=== PATIENT | female | born 1940 | race Caucasian/White ===

== ENCOUNTER → 2017-01-05 | Outpatient (CLI) | payer MEDICARE ==
--- NOTE | 2017-01-05 14:04 | MM ---
Reason for exam: follow-up at short interval from prior study. Last mammogram was performed 6 months ago. History: Patient is postmenopausal. Family history of breast cancer in paternal aunt at age 50. Excisional biopsy of the left breast. Took estrogen for 8 years beginning at age 57. Took progesterone for 8 years beginning at age 57. MG 3D Diag Mammo W/Cad LT LM view(s) were taken of the left breast. Prior study comparison: July 05, 2016, bilateral MG 3d screening mammo w/cad. June 02, 2015, bilateral MG screening mammo w CAD. June 15, 2013, bilateral digital screening mammo w/CAD. The breast tissue is heterogeneously dense. This may lower the sensitivity of mammography. Finding: There are typically benign round, grouped calcifications in the left breast at chronic nodularity. There is no discrete abnormality. These results were verbally communicated with the patient and result sheet given to the patient on 01/05/17. ASSESSMENT: Benign, BI-RAD 2 RECOMMENDATION: Routine screening mammogram of both breasts in 6 months. Back on schedule.
== END | disposition home or self-care (01) ==
LOC: RADMAMWWP 12:46
PROVIDERS: ATTEND Internal Medicine Geriatric Medicine
DX: R92.8 Other abnormal and inconclusive findings on diagnostic imaging of breast (principal)
CPT/HCPCS: G0206; G0279

== ENCOUNTER → 2017-08-16 | Outpatient (CLI) | payer MEDICARE ==
--- NOTE | 2017-08-18 07:08 | MM ---
Reason for exam: screening (asymptomatic). Last mammogram was performed 7 months ago. History: Patient is postmenopausal. Family history of breast cancer in paternal aunt at age 50. Excisional biopsy of the left breast. Took estrogen for 8 years beginning at age 57. Took progesterone for 8 years beginning at age 57. Physical Findings: A clinical breast exam by your physician is recommended on an annual basis and results should be correlated with mammographic findings. MG 3D Screening Mammo W/Cad Bilateral CC and MLO view(s) were taken. Prior study comparison: January 05, 2017, left breast MG 3d diag mammo w/cad LT. July 05, 2016, bilateral MG 3d screening mammo w/cad. The breast tissue is extremely dense which could obscure a lesion on mammography. No significant changes when compared with prior studies. ASSESSMENT: Benign, BI-RAD 2 RECOMMENDATION: Routine screening mammogram of both breasts in 1 year.
== END | disposition home or self-care (01) ==
LOC: RADMAMWWP 11:35
PROVIDERS: ATTEND Internal Medicine Geriatric Medicine
DX: Z12.31 Encounter for screening mammogram for malignant neoplasm of breast (principal)
CPT/HCPCS: 77063; 77067

== ENCOUNTER → 2018-10-25 | Outpatient (CLI) | payer MEDICARE ==
--- NOTE | 2018-10-25 11:26 | USB ---
Reason for exam: additional evaluation requested from abnormal screening. History: Patient is postmenopausal. Family history of breast cancer in paternal aunt at age 50. Excisional biopsy of the left breast. Took estrogen for 8 years beginning at age 57. Took progesterone for 8 years beginning at age 57. Physical Findings: Nurse Summary: 3cm hard firm nodule 6 o'clock (nurse dw). US Breast Workup Limited RT Right limited breast ultrasound including focal area of concern, retroareolar and axilla demonstrates a 3.4 x 1.6 x 2.6cm irregular, hypoechoic, vascular lesion at 5 o'clock. These results were verbally communicated with the patient and result sheet given to the patient on 10/25/18. ASSESSMENT: Suspicious, BI-RAD 4 RECOMMENDATION: Ultrasound core biopsy of the right breast. Called Dr. Reich with mammographic findings and has scheduled an appointment for the patient for 11/16/18 at 11:[address] Francis. Biopsy scheduled for 11/08/18 at 1:00. PRELIMINARY REPORT CALLED AND FAXED TO DR. FRANCIS ON 10/25/18.
== END | disposition home or self-care (01) ==
LOC: RADUSWWP 09:17
PROVIDERS: ATTEND Internal Medicine Geriatric Medicine
DX: R92.8 Other abnormal and inconclusive findings on diagnostic imaging of breast (principal)

== ENCOUNTER → 2018-11-08 | Day surgery (SDC) | payer MEDICARE ==
[2018-11-08 12:27] VITALS: RESP 16; TEMP 99.4; BMI 31.4
[2018-11-08 14:16] VITALS: BP 129/74; PULSE 84
--- NOTE | 2018-11-08 15:56 | USB ---
EXAMINATION TYPE: US biopsy breast VAD RT DATE OF EXAM: 11/08/2018 CLINICAL HISTORY: R98.2 ABN VERONICA. TECHNIQUE: Ultrasound guided core biopsy of right breast. COMPARISON: NONE FINDINGS: The procedure of ultrasound guided core biopsy was explained to the patient. Benefits, alternatives, and risks were discussed. An informed consent was then obtained. A timeout was performed. The patient was placed in supine positioning for imaging and for the procedure. The overlying skin was prepped and draped in usual sterile fashion. Lidocaine buffered with bicarbonate was used as anesthetic into the skin and subcutaneous tissue up to area of concern in the right breast. A christina was made with surgical scalpel. Under ultrasound guidance, a 12-gauge vacuum assisted biopsy gun device was used to obtain 7 core samples. A lateral approach was utilized for inferior access to the lesion to void large vessels which were evident during the exam. Following this, a biopsy clip was left in lesion. The patient tolerated the procedure well without any immediate complication. The patient was kept in the radiology department for short stay after the procedure and then discharged home in stable condition. Postprocedure mammogram is obtained. Clip is within the area of increased density within the lower inner 5:00 middle aspect right breast. IMPRESSION: 1. Successful, uncomplicated ultrasound guided core biopsy of area of concern in the right breast, full pathology results to follow. Recommendations: 1. Recommendations are pending pathology results. Pathology Results: Malignant RIGHT BREAST, NEEDLE CORE BIOPSIES: Pleomorphic lobular carcinoma, grade 2. Appropriately controlled immunohistochemical studies for CAM 5.2 and E-Cadherin suport the diagnosis of pleomorphic lobular carcinoma: MUM1, CD45 and CD38 are negative for a lymphoplasmacytoid lesion. Recommendation Surgical consult of the right breast. JENNIFER
--- NOTE | 2018-11-08 15:57 | MM ---
EXAMINATION TYPE: US biopsy breast VAD RT DATE OF EXAM: 11/08/2018 CLINICAL HISTORY: R98.2 ABN VERONICA. TECHNIQUE: Ultrasound guided core biopsy of right breast. COMPARISON: NONE FINDINGS: The procedure of ultrasound guided core biopsy was explained to the patient. Benefits, alt ernatives, and risks were discussed. An informed consent was then obtained. A timeout was performed. The patient was placed in supine positioning for imaging and for the procedure. The overlying skin w as prepped and draped in usual sterile fashion. Lidocaine buffered with bicarbonate was used as anes thetic into the skin and subcutaneous tissue up to area of concern in the right breast. A christina was m jean-claude with surgical scalpel. Under ultrasound guidance, a 12-gauge vacuum assisted biopsy gun device was used to obtain 7 [address]es. A lateral approach was utilized for inferior access to the lesion to void large vessels which were evident during the exam. Following this, a biopsy clip was left in lesion. The patient tolerated the procedure well without any immediate complication. The patient was kept in the radiology department for short stay after the procedure and then discharged home in stable condi tion. Postprocedure mammogram is obtained. Clip is within the area of increased density within the lower in ner 5:00 middle aspect right breast. IMPRESSION: 1. Successful, uncomplicated ultrasound guided core biopsy of area of concern in the right breast, fu ll pathology results to follow.
== END ==
LOC: RADUSWWP 11:50
PROVIDERS: ATTEND Surgery
DX: C50.311 Malignant neoplasm of lower-inner quadrant of right female breast (principal)
CPT/HCPCS: 88305; 88342; 88341; 77065; 19083; A4648; J2001

== ENCOUNTER → 2019-05-07 | Outpatient (CLI) | payer MEDICARE ==
--- NOTE | 2019-05-07 10:04 | MM ---
Reason for exam: additional evaluation requested from prior study. Last mammogram was performed 6 months ago. History: Patient is postmenopausal and has history of breast cancer at age 78. Family history of breast cancer in paternal aunt at age 50. Malignant US biopsy breast VAD RT of the right breast, November 08, 2018. Excisional biopsy of the left breast. Took estrogen for 8 years beginning at age 57. Took progesterone for 8 years beginning at age 57. Physical Findings: Nurse did not find any significant physical abnormalities on exam. MG 3D Diag Mammo W/Cad RT CC and MLO view(s) were taken of the right breast. Prior study comparison: November 08, 2018, right breast MG diagnostic mammo RT wo CAD. October 12, 2018, bilateral MG 3d screening mammo w/cad. The breast tissue is extremely dense which could obscure a lesion on mammography. Smaller size of the right lower inner quadrant mass, biopsy proven breast cancer marked with a ribbon marker, now measuring 1.7cm from nipple. Benign appearing calcifications in the right breast. These results were verbally communicated with the patient and result sheet given to the patient on 05/07/19. ASSESSMENT: Known biopsy proven malignancy, BI-RAD 6 RECOMMENDATION: Localization and excision of the right breast.
--- NOTE | 2019-05-07 10:06 | USB ---
Reason for exam: additional evaluation requested from prior study. History: Patient is postmenopausal and has history of breast cancer at age 78. Family history of breast cancer in paternal aunt at age 50. Malignant US biopsy breast VAD RT of the right breast, November 08, 2018. Excisional biopsy of the left breast. Took estrogen for 8 years beginning at age 57. Took progesterone for 8 years beginning at age 57. US Breast RT Right complete breast ultrasound includes all four quadrants, the retroareolar region and axilla. Finding demonstrates a 2.6 x 2.6 x 1.3cm irregular, vascular lesion at 5 o'clock, prior 3.4 x 1.6 x 2.6cm. These results were verbally communicated with the patient and result sheet given to the patient on 05/07/19. ASSESSMENT: Known biopsy proven malignancy, BI-RAD 6 RECOMMENDATION: Localization and excision of the right breast.
== END | disposition home or self-care (01) ==
LOC: RADMAMWWP 08:05
PROVIDERS: ATTEND Internal Medicine Hematology & Oncology
DX: N63.10 Unspecified lump in the right breast, unspecified quadrant (principal); R92.8 Other abnormal and inconclusive findings on diagnostic imaging of breast; Z85.3 Personal history of malignant neoplasm of breast
CPT/HCPCS: 77065; 76641; G0279; 77061

== ENCOUNTER 2019-05-25 07:47 | Day surgery (SDC) | payer MEDICARE ==
[2019-05-24 08:25] VITALS: BMI 28.3
[~2019-05-25 07:47] MED LIST: HYDROmorphone 0.5 MG/0.5 ML SYRINGE IVP PRN; LACTATED RINGERS 1,000 ML IV SCH; MIDAZOLAM 2 MG/2 ML VIAL IV PRN; Pre Op ABX Message 1 EACH MISC MISCELLANE ONE
[2019-05-25] MEDS ORDERED: ALPRAZolam 0.25 MG TAB PO ONE (08:14)
[2019-05-25] MEDS ORDERED: LIDOCAINE 1% 20 ML VIAL (10MG/ML) FOR IV START INTRADERMA ONE (08:29)
--- NOTE | 2019-05-25 08:52 | P.NAPBC ---
[facility] Queries - [facility] Was patient's case review presented at [facility] tumor board? If no, comment.: Yes Was patient's pathology reviewed at [facility]? If no, comment.: Yes Was breast conservation surgery offered? If no, comment.: Yes Was sentinel node biopsy offered? If no, comment.: Yes Was diagnosis confirmed by percutaneous core biopsy? If no, comment.: Yes Is patient mastectomy patient?: Yes Was a preop referral to reconstructive surgeon offered?: Yes [facility] Comments: 2a Clinical Stage: 2a
[2019-05-25] MEDS ORDERED: LIDOCAINE 1% INJ 10MG/ML (20 ML MDV) SQ ONE (08:56)
[2019-05-25] MEDS ORDERED: PROPOFOL 10 MG/ML 20 ML VIAL IV ONE (09:49)
[2019-05-25] MEDS ORDERED: LIDOCAINE 1% INJ 10MG/ML (20 ML MDV) ONE (09:49)
[2019-05-25] MEDS ORDERED: ePHEDrine SULFATE/0.9% NACL/PF 50 MG/5 ML SYRINGE IV ONE (09:49)
[2019-05-25] MEDS ORDERED: MIDAZOLAM 2 MG/2 ML VIAL ONE (09:49)
[2019-05-25] MEDS ORDERED: SUCCINYLCHOLINE CHLORIDE 100 MG/5 ML SYR IV ONE (09:49)
[2019-05-25] MEDS ORDERED: fentaNYL (PF) 50 MCG/ML 2 ML AMP ONE (09:49)
[2019-05-25] MEDS: ONDANSETRON 4 MG/2 ML VIAL IVP ONE ×2 (09:51→09:56)
[2019-05-25] MEDS: DEXAMETHASONE SOD PHOSPHATE 10 MG/ML 1 ML VIAL IV ONE ×2 (09:51→09:56)
[2019-05-25] MEDS ORDERED: SCOPOLAMINE 1.5MG/72HR PATCH TRANSDERM ONE ×2 (09:51→09:57)
[2019-05-25] MEDS: HEPARIN SODIUM,PORCINE 5,000 UNIT/ML 1 ML VIAL SQ ONE ×2 (09:51→09:56)
[2019-05-25] MEDS ORDERED: SODIUM CHLORIDE 0.9% 100 ML with ceFAZolin 2,000 MG IV ONE ×2 (10:06)
--- NOTE | 2019-05-25 10:13 | NM ---
EXAMINATION TYPE: NM sentinel node injection DATE OF EXAM: 05/25/2019 COMPARISON: Right breast biopsy dated 11/08/2018 HISTORY: Right breast cancer with request for sentinel node injection. TECHNIQUE AND FINDINGS: The procedure of sentinel lymph node injection was explained to the patient. The benefits, alternatives, and risks were discussed. An informed consent was then obtained. Overlying skin is cleaned with sterile alcohol. Following this, 549 uCi Tc99m Tilmanocept was inject ed in the upper outer aspect of the right nipple intradermally. The patient tolerated the procedure well without any immediate complication. The patient was kept in the radiology department for short stay after the procedure and then taken to surgery for surgical p rocedure what is presumed intraoperative gamma probe will be used for sentinel lymph node detection. IMPRESSION: Right breast radiotracer injection for sentinel node localization as above.
[2019-05-25] MEDS ORDERED: METHYLENE BLUE 50 MG/10 ML AMPUL MISCELLANE ONE (10:15)
[2019-05-25] MEDS ORDERED: METHYLENE BLUE 10 MG/ML (10 ML VIAL) MISCELLANE ONE (10:15)
[2019-05-25] MEDS ORDERED: BUPIVACAINE (PF) 0.25% 30 ML VIAL SQ ONE (10:27)
--- NOTE | 2019-05-25 11:09 | MM ---
EXAMINATION TYPE: MG pre op needle loc RT, MG surgical specimen RT DATE OF EXAM: 05/25/2019 COMPARISON: Right breast biopsy dated 11/08/2018 HISTORY: Right breast cancer with request for mammographic guided needle localization. TECHNIQUE: Needle localization with wire placement and surgical excision of area of concern in the right breast. FINDINGS: The procedure of needle localization with wire placement and than surgical excision was explained to the patient. Benefits, alternatives, and risks were discussed. An informed consent was then obtained. Preprocedural timeout was performed. The shortest pathway for procedure was chosen. Shortest pathway was CC from below approach. The overlying skin was prepped and draped in usual sterile fashion. Lidocaine buffered with bicarbonate was used as anesthetic into the skin and subcutaneous tissue up to the level of area of concern. A 5 cm needle was used. It was placed via a 5 approach under mammographic guidance. Subsequent 90 degrees mammogram show the needle to be in satisfactory position relative to the targeted area. At this point, wire was placed and the needle was withdrawn. The wire was fixed to patient's skin. Images were marked for surgeon. The patient tolerated the procedure well without any immediate complication. The patient was kept in the radiology department for short stay after the procedure and then taken to surgery for surgical excision. Targeted biopsy marker and wire are identified in specimen mammogram. The patient was kept in hospital for short stay after the procedure and then discharged home in stable condition. Findings communicated to the OR at 11:07 AM on 05/25/2019 by the installation technician. IMPRESSION: Successful, uncomplicated needle localization with wire placement and surgical excision of a targeted biopsy marker denoting the biopsy-proven breast cancer in the right breast, full pathology results to follow. Pathology Results: Malignant A. SENTINEL LYMPH NODE RIGHT BREAST, BIOPSY: Lymph node negative for metastasis. CK7 and NAOMY immunoperoxidase stains are confirmatory (controls appropriate). B. RIGHT BREAST, LUMPECTOMY: Residual invasive pleomorphic lobular carcinoma, margins negative for malignancy. See Surgical Pathology Cancer Case Summary. Recommendation Surgical consult of the right breast. JENNIFER
[2019-05-25 11:32] VITALS: TEMP 96.8
[2019-05-25] MEDS ORDERED: NALOXONE 0.4 MG/ML 1 ML VIAL IV PRN (11:44)
[2019-05-25] MEDS ORDERED: HYDROcodone/APAP 5-325MG 1 EACH TAB PO PRN (11:44)
--- NOTE | 2019-05-25 11:48 | P.OP ---
Date of Procedure: 05/25/19 Procedure(s) Performed: REOPERATIVE DIAGNOSIS: Right breast cancer POSTOPERATIVE DIAGNOSIS: Same PROCEDURE: Right Breast wire localization lumpectomy with sentinel lymph node biopsy SURGEON: Tito EBL: Minimal ANESTHESIA: General COMPLICATIONS: None OPERATIVE PROCEDURE: Patient was placed on the operating room table in the supine position. 2 mL of methylene blue was injected into the subareolar space. The breast was then massaged for 5 minutes. The breast was prepped and draped in usual sterile fashion. The right axilla was addressed at that time. The hot spot in the right axilla was identified. A small curvilinear incision was made using the scalpel. Dissection down through the subcutaneous tissues took place using electrocautery. Using the neoprobe I identified the sentinel lymph node. This was blue in color. This was slender and nonindurated but somewhat long. I suspect there may have been 2 lymph nodes here. No additional radioactivity was encountered in the axilla. No frozen section of the lymph node took place given the benign appearance and the fact that the initial pathology was lobular carcinoma. No bleeding was seen. The subcutaneous tissues were closed using 3- 0 Vicryl sutures. The skin was closed using 4-0 Monocryl sutures. The wire entrance site was then addressed. This was present at the 3:00 location. A curvilinear incision was made adjacent to the wire entrance site. I followed the wire down into the breast tissue. An adequate lumpectomy specimen then took place around the wire. Margins of 1.5-2 cm worth attempted to be achieved. The patient's breast tissue diffusely was somewhat dense. As I was closing the surgical site the specimen was sent to pathology prematurely. I had not painted the specimen at that time. When we tried to have the specimen brought back to the operative suite from x-ray we learned that it already been placed in formalin in the lab. The family was notified that the margins were not painted. Clips were used to identify the lumpectomy cavity. The clip was confirmed to be within the lumpectomy specimen by radiology. The subcutaneous tissues were closed using 3-0 Vicryl sutures. The skin was closed using a running 4-0 Monocryl stitch. Skin glue and sterile dressings were then applied. DISPOSITION: Stable to recovery room
[2019-05-25 13:41] VITALS: BP 144/80; PULSE 73; RESP 16
== END 2019-05-25 14:27 | disposition home or self-care (01) ==
LOC: OR 07:47
PROVIDERS: ATTEND Surgery
DX: C50.411 Malignant neoplasm of upper-outer quadrant of right female breast (principal); E78.5 Hyperlipidemia, unspecified; I10 Essential (primary) hypertension; E07.9 Disorder of thyroid, unspecified; M19.90 Unspecified osteoarthritis, unspecified site; H40.9 Unspecified glaucoma; Z98.49 Cataract extraction status, unspecified eye; Z84.89 Family history of other specified conditions; Z79.890 Hormone replacement therapy; Z79.899 Other long term (current) drug therapy; Z91.018 Allergy to other foods
CPT/HCPCS: 19301; 38525; 88342; 88307; 88341; 76098; 19281; 38792; A9520; J2250; J1644; J1100; J2405; J0690; J2001; J3010; J0330; J2704; Q9968

== ENCOUNTER → 2020-01-28 | Outpatient (CLI) | payer MEDICARE ==
--- NOTE | 2020-01-29 09:20 | MM ---
Reason for exam: additional evaluation requested from prior study. Last mammogram was performed 9 months ago. History: Patient is postmenopausal and has history of breast cancer at age 78. Family history of breast cancer in paternal aunt at age 50. Malignant MG pre op needle loc RT of the right breast, May 25, 2019. Lumpectomy of the right breast, May 25, 2019. Radiation therapy of the right breast, May 2019. Malignant US biopsy breast VAD RT of the right breast, November 08, 2018. Excisional biopsy of the left breast. Took estrogen for 8 years beginning at age 57. Took progesterone for 8 years beginning at age 57. Taking antineoplastic for 1 year. Physical Findings: Nurse did not find any significant physical abnormalities on exam. MG 3D Diag Mammo W/Cad LIBERTAD Bilateral CC and MLO view(s) were taken. Prior study comparison: May 07, 2019, right breast MG 3d diag mammo w/cad RT. November 08, 2018, right breast MG diagnostic mammo RT wo CAD. The breast tissue is heterogeneously dense. This may lower the sensitivity of mammography. Stable benign calcifications. There is no discrete abnormality. No significant new findings when compared with previous films. These results were verbally communicated with the patient and result sheet given to the patient on 01/28/20. ASSESSMENT: Benign, BI-RAD 2 RECOMMENDATION: Routine screening mammogram of both breasts in 1 year.
== END | disposition home or self-care (01) ==
LOC: RADMAMWWP 14:58
PROVIDERS: ATTEND Radiology Radiation Oncology
DX: C50.311 Malignant neoplasm of lower-inner quadrant of right female breast (principal); Z92.3 Personal history of irradiation; Z17.0 Estrogen receptor positive status [ER+]
CPT/HCPCS: 77066; G0279; 77062

== ENCOUNTER → 2021-02-11 | Outpatient (CLI) | payer MEDICARE ==
--- NOTE | 2021-02-11 10:45 | MM ---
Reason for exam: additional evaluation requested from prior study. Last mammogram was performed 1 year ago. History: Patient is postmenopausal and has history of breast cancer at age 78. Family history of breast cancer in paternal aunt at age 50. Malignant MG pre op needle loc RT of the right breast, May 25, 2019. Lumpectomy of the right breast, May 25, 2019. Radiation therapy of the right breast, May 2019. Malignant US biopsy breast VAD RT of the right breast, November 08, 2018. Excisional biopsy of the left breast. Took estrogen for 8 years beginning at age 57. Took progesterone for 8 years beginning at age 57. Taking antineoplastic beginning at age 78. Physical Findings: Nurse did not find any significant physical abnormalities on exam. MG 3D Diag Mammo W/Cad LIBERTAD Bilateral CC and MLO view(s) were taken. Prior study comparison: January 28, 2020, bilateral MG 3d diag mammo w/cad LIBERTAD. May 07, 2019, right breast MG 3d diag mammo w/cad RT. The breast tissue is heterogeneously dense. This may lower the sensitivity of mammography. Right post operative changes. These results were verbally communicated with the patient and result sheet given to the patient on 02/11/21. ASSESSMENT: Benign, BI-RAD 2 RECOMMENDATION: Follow-up diagnostic mammogram of both breasts in 1 year.
--- NOTE | 2021-02-11 12:19 | BD ---
EXAMINATION TYPE: Axial Bone Density DATE OF EXAM: 02/11/2021 COMPARISON: 10.12.2018 CLINICAL HISTORY: 80 YR OLD FEMALE.....ICD-10 CODE: Z70.89 POST MENOPAUSE Height: 62 Weight: 166 FRAX RISK QUESTIONS: Glucocorticoids (More than 3mos): NONE AT THIS TIME (Ex: prednisone, prednisolone, methylprednisolone, dexamethasone, and hydrocortisone). RISK FACTORS HISTORY OF: Postmenopausal woman: YES, AT AGE 52 Take estrogen and/or progesterone medications: BCP IN THE PAST 10-15 YRS, Lost more than 2 inches in height since high school: YES Hyperparathyroidism: NO Adrenal Insufficiency: NO MEDICATIONS: Prednisone or other steroids: ON AND OFF IN THE PAST Thyroid Medications: YES, SYNTHROID FOR ABOUT 20+ YRS Osteoporosis Medications: YES, FOSAMAX, YES FOR ABOUT 2-3 YRS Additional Medications: LETROZOLE, BP MEDS, LEXAPRO, HX OF RADIATION, REFLUX MEDS, STATIN FOR CHOLES TEROL, VIT D AND CALCIUM Additional History: HX OF RT BREAST CANCER, HYPERTENSION, ANXIETY, REFLUX, CHOLESTEROL, SCOLIOSIS, EXAM MEASUREMENTS: Bone mineral densitometry was performed using the [employer] System. Bone mineral density as measured about the Lumbar spine is: ----- L1-L4(G/cm2): 1.119 T Score Values are as follows: ----- L1: 0.6 ----- L2: 0.1 ----- L3: -1.7 ----- L4: -1.2 ----- L1-L4: -0.5 Bone mineral density has: Decreased -10.2% since study of: 10.12.2018 Bone mineral density about the R hip (g/cm2): 0.718 Bone mineral density about the L hip (g/cm2): 0.860 T Score values are as follows: -----R Neck: -2.7 -----L Neck: -2.5 -----R Total: -2.3 -----L Total: -1.2 Bone mineral density has: Increased 2.6% since study of: 10.12.2018 FRAX%s: THERE IS A 20.3% CHANCE FOR A MAJOR OSTEOPOROTIC FX AND A 7.5% FOR HIP......PROBABILITY FO R FX IN 10 YRS TIME IMPRESSION: Osteopenia. NOTE: T-SCORE=SD OF THE YOUNG ADULT MEAN.
== END | disposition home or self-care (01) ==
LOC: RADMAMWWP 09:30
PROVIDERS: ATTEND Internal Medicine Hematology & Oncology
DX: M85.89 Other specified disorders of bone density and structure, multiple sites (principal); R92.2 Inconclusive mammogram; Z78.0 Asymptomatic menopausal state; Z85.3 Personal history of malignant neoplasm of breast; Z80.3 Family history of malignant neoplasm of breast
CPT/HCPCS: 77080; 77066; G0279; 77062

== ENCOUNTER → 2022-02-15 | Outpatient (CLI) | payer MEDICARE ==
--- NOTE | 2022-02-16 09:10 | MM ---
Reason for Exam: Screening (asymptomatic). Last screening mammogram was performed 12 month(s) ago. Patient History: Menarche at age 13. First Full-Term at age 27. Postmenopausal. Breast cancer, right, age 78. Previous chest radiation therapy at age 78. Estrogen for 8 years from age 57 until age 65. Progesterone for 8 years from age 57 until age 65. Excisional Biopsy on the Left side. 05/25/2019, Lumpectomy on the Right side. 05/25/2019, Malignant Core Biopsy on the right side. 11/08/2018, Malignant Core Biopsy on the right side. 05/2019, Radiation Therapy on the right side. Paternal aunt had breast cancer, age 50. Prior Study Comparison: 05/07/2019 Right Diagnostic Mammogram, [facility]. 01/28/2020 Bilateral Diagnostic Mammogram, [facility]. 02/11/2021 Bilateral Diagnostic Mammogram, [facility]. Tissue Density: The breast tissue is extremely dense which could obscure a lesion on mammography. Findings: Analyzed By CAD. Is architectural distortion and postsurgical changes involving the right breast which is stable. Benign-appearing calcifications are noted. 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 Stable. Overall Assessment: Benign, BI-RAD 2 Management: Screening Mammogram of both breasts in 1 year. A clinical breast exam by your physician is recommended on an annual basis and results should be correlated with mammographic findings. Electronically signed and approved by: Erasto John M.D. Radiologis
== END | disposition home or self-care (01) ==
LOC: RADMAMWWP 12:39
PROVIDERS: ATTEND Internal Medicine Hematology & Oncology
DX: Z12.31 Encounter for screening mammogram for malignant neoplasm of breast (principal); Z78.0 Asymptomatic menopausal state; Z85.3 Personal history of malignant neoplasm of breast
CPT/HCPCS: 77063; 77067

== ENCOUNTER → 2023-02-16 | Outpatient (CLI) | payer MEDICARE ==
--- NOTE | 2023-02-16 11:45 | BD ---
EXAMINATION TYPE: Axial Bone Density DATE OF EXAM: 02/16/2023 CLINICAL HISTORY: 82 years old Female. ICD-10 CODE: C50.311 BREAST CANCER Height: 62.2 in Weight: 168 lbs RISK FACTORS HISTORY OF: Active: yes Diet low in dairy products/other sources of calcium: yes Postmenopausal woman: age 52 Lost more than 2 inches in height since high school: yes 3" MEDICATIONS: Thyroid Medications: yes Which medication: Levothyroxine How Lon+ years Osteoporosis Medications: yes Which medication: Prolia How Lon year Additional Medications: calcium, vit d, blood pressure meds, cholesterol meds, amlodipine, simvastati n, omeprazole, eye drops, potassium, vit c, arthritis, aspirin, Additional History: EXAM MEASUREMENTS: Bone mineral densitometry was performed using the [employer] System. Bone mineral density as measured about the Lumbar spine is: ----- L1-L4(G/cm2): 1.315 T Score Values are as follows: ----- L1: 1.4 ----- L2: 0.6 ----- L3: 0.7 ----- L4: 1.6 ----- L1-L4: 1.1 Z Score Values are as follows: ----- L1: 2.9 ----- L2: 2.0 ----- L3: 2.1 ----- L4: 3.1 ----- L1-L4: 2.6 Bone mineral density has: Increased 17.5% since study of: 02/11/2021 Bone mineral density about the R hip (g/cm2): 0.741 Bone mineral density about the L hip (g/cm2): 0.890 T Score values are as follows: -----R Neck: -2.5 -----L Neck: -2.2 -----R Total: -2.1 -----L Total: -0.9 Z Score values are as follows: -----R Neck: -0.6 -----L Neck: -0.3 -----R Total: -0.4 -----L Total: -0.8 Bone mineral density has: Increased 3.3% since study of: 02/11/2021 FRAX%s: The graph provided illustrates a 19.3% chance for a major osteoporotic fx and a 6.8% chance f or the hips probability for fx in 10 years time. IMPRESSION: Osteopenia (T Score between -2.5 and -1). There is slightly increased risk of fracture and the patient may be considered for treatment. Re-Screen 2-5 years. NOTE: T-SCORE=SD OF THE YOUNG ADULT MEAN.
--- NOTE | 2023-02-16 14:23 | MM ---
Reason for Exam: Screening (asymptomatic). Last screening mammogram was performed 12 month(s) ago. Patient History: Menarche at age 13. First Full-Term at age 27. Postmenopausal. Breast cancer, right, age 78. Previous chest radiation therapy at age 78. Estrogen for 8 years from age 57 until age 65. Progesterone for 8 years from age 57 until age 65. Excisional Biopsy on the Left side. 05/25/2019, Lumpectomy on the Right side. 05/25/2019, Malignant Core Biopsy on the right side. 11/08/2018, Malignant Core Biopsy on the right side. 05/2019, Radiation Therapy on the right side. Paternal aunt had breast cancer, age 50. Prior Study Comparison: 01/28/2020 Bilateral Diagnostic Mammogram, [facility]. 02/11/2021 Bilateral Diagnostic Mammogram, [facility]. 02/15/2022 Bilateral MG 3D screening mammo w/cad, [facility]. Tissue Density: The breast tissue is heterogeneously dense. This may lower the sensitivity of mammography. Findings: Analyzed By CAD. Right breast surgical clips. There is no suspicious group of microcalcifications or new suspicious mass in either breast. Overall Assessment: Negative, BI-RAD 1 Management: Screening Mammogram of both breasts in [address] [facility] will attempt to contact patient to return for supplemental views and ultrasound if indicated. Patient should continue monthly self-breast exams. A clinical breast exam by your physician is recommended on an annual basis. This exam should not preclude additional follow-up of suspicious palpable abnormalities. Note on Traci scores and lifetime risk: 1. A Traci score greater than 3% is considered moderate risk. If this is the case, consider specialist referral to assess eligibility for a risk reducing agent. 2. If overall lifetime risk for the development of breast cancer is 20% or higher, the patient may qualify for future screening with alternating mammogram and breast MRI. Electronically signed and approved by: Kevin Salcedo DO
== END | disposition home or self-care (01) ==
LOC: RADMAMWWP 09:03
PROVIDERS: ATTEND Internal Medicine Hematology & Oncology
DX: Z12.31 Encounter for screening mammogram for malignant neoplasm of breast (principal); C50.311 Malignant neoplasm of lower-inner quadrant of right female breast; M85.89 Other specified disorders of bone density and structure, multiple sites; M81.0 Age-related osteoporosis without current pathological fracture; Z80.3 Family history of malignant neoplasm of breast; Z78.0 Asymptomatic menopausal state
CPT/HCPCS: 77063; 77067; 77080

== ENCOUNTER → 2024-02-20 | Outpatient (CLI) | payer MEDICARE ==
--- NOTE | 2024-02-22 12:46 | MM ---
Reason for Exam: Screening (asymptomatic). Last screening mammogram was performed 12 month(s) ago. Patient History: Menarche at age 13. First Full-Term at age 27. Postmenopausal. Breast cancer, right, age 78. Previous chest radiation therapy at age 78. Estrogen for 8 years from age 57 until age 65. Progesterone for 8 years from age 57 until age 65. Excisional Biopsy on the Left side. 05/25/2019, Lumpectomy on the Right side. 05/25/2019, Malignant Core Biopsy on the right side. 11/08/2018, Malignant Core Biopsy on the right side. 05/2019, Radiation Therapy on the right side. Paternal aunt had breast cancer, age 50. Prior Study Comparison: 02/11/2021 Bilateral Diagnostic Mammogram, [facility]. 02/15/2022 Bilateral MG 3D screening mammo w/cad, [facility]. 02/16/2023 Bilateral MG 3D screening mammo w/cad, [facility]. Tissue Density: The breasts are heterogeneously dense, which may obscure small masses. Findings: Analyzed By CAD. Right breast surgical clips. Right breast: There is no suspicious group of microcalcifications or new suspicious mass. Benign-appearing calcifications right breast. Left breast: There is no suspicious group of microcalcifications or new suspicious mass. Benign-appearing calcifications left breast. Overall Assessment: Benign, BI-RAD 2 Management: Screening Mammogram of both breasts in [address] [facility] will attempt to contact patient to return for supplemental views and ultrasound if indicated. Patient should continue monthly self-breast exams. A clinical breast exam by your physician is recommended on an annual basis. This exam should not preclude additional follow-up of suspicious palpable abnormalities. Note on Traci scores and lifetime risk: 1. A Traci score greater than 3% is considered moderate risk. If this is the case, consider specialist referral to assess eligibility for a risk reducing agent. 2. If overall lifetime risk for the development of breast cancer is 20% or higher, the patient may qualify for future screening with alternating mammogram and breast MRI. Electronically signed and approved by: Kevin Salcedo DO
== END | disposition home or self-care (01) ==
LOC: RADMAMWWP 08:54
PROVIDERS: ATTEND Internal Medicine Hematology & Oncology
DX: Z12.31 Encounter for screening mammogram for malignant neoplasm of breast (principal); R92.333 Mammographic heterogeneous density, bilateral breasts; C50.311 Malignant neoplasm of lower-inner quadrant of right female breast; I10 Essential (primary) hypertension; Z80.3 Family history of malignant neoplasm of breast; E78.5 Hyperlipidemia, unspecified; M81.0 Age-related osteoporosis without current pathological fracture; Z78.0 Asymptomatic menopausal state; Z92.3 Personal history of irradiation
CPT/HCPCS: 77063; 77067

== ENCOUNTER → 2024-02-20 | Outpatient (CLI) | payer MEDICARE ==
[2024-02-20 13:12] LABS: Basophils % (A) 1 %; Eosinophils # (A) 0.3 k/uL (0-0.7); Eosinophils % (A) 3 %; HCT 37.7 % (34.0-46.0); Lymphocytes # (A) 1.7 k/uL (1.0-4.8); Lymphocytes % (A) 21 %; MCH 30.8 pg (25.0-35.0); MCHC 34.6 g/dL (31.0-37.0); MCV 89.1 fL (80.0-100.0); Mean Platelet Volume 6.7; Monocytes # (A) 0.4 k/uL (0-1.0); Monocytes % (A) 6 %; Neutrophils # (A) 5.2 k/uL (1.3-7.7); Neutrophils % (A) 66 %; Platelet Count 238 k/uL (150-450); RBC 4.23 m/uL (3.80-5.40); RDW 12.3 % (11.5-15.5); WBC 7.9 k/uL (3.8-10.6)
[2024-02-20 13:30] LABS: ALT 27 U/L (4-34); AST 38 U/L (14-36); African American GFR (CKD) >90 (>60 ml/min/1.73 sqM); Albumin 4.6 g/dL (3.5-5.0); Albumin/Globulin Ratio 1.5; Alkaline Phosphatase 56 U/L (38-126); Anion Gap 8 mmol/L; Blood Urea Nitrogen 14 mg/dL (7-17); Calcium 10.3 mg/dL (8.4-10.2); Carbon Dioxide 26 mmol/L (22-30); Chloride 104 mmol/L (98-107); Globulin 3.1 g/dL; Glucose 89 mg/dL (74-99); Non-African American GFR(CKD) 84 (>60 ml/min/1.73 sqM); Potassium 3.9 mmol/L (3.5-5.1); Sodium 138 mmol/L (137-145); Total Bilirubin 0.5 mg/dL (0.2-1.3); Total Protein 7.7 g/dL (6.3-8.2)
[2024-02-20 13:46] LABS: T4, Free (Free Thyroxine) 1.52 ng/dL (0.78-2.19)
--- NOTE | 2024-02-20 17:21 | CT ---
EXAMINATION TYPE: CT angio chest DATE OF EXAM: 02/20/2024 COMPARISON: None HISTORY: 83-year-old female R06.02, SOB x 6 months TECHNIQUE: Contiguous axial scanning of the chest after the administration of 80 mL of Isovue 370. C oronal/sagittal reconstructions performed. CT DLP: 609mGycm. Automatic exposure control utilized for a dose reduction. FINDINGS: The heart is normal in size without pericardial effusion. No flattening of the interventricular septu m or reflux of contrast into the hepatic veins. LAD coronary artery calcifications are present. Aorta normal caliber with mild atherosclerotic arch calcifications and conventional vessel branching anatomy. Mildly enlarged main right and left pulmonary arteries up to 2.8 cm suggesting underlying pulmonary h ypertension. No evidence for pulmonary embolus. Prominent 1.2 cm right hilar lymph node likely reactive/post inflammatory. Small partially calcified lower right paratracheal lymph nodes suggest prior granulomatous disease. No thoracic lymphadenopathy otherwise seen by CT size criteria. Metal clips inferior right breast related to prior surgery. Prominent bandlike and patchy areas of suspected scarring in the lower lungs. Minimal biapical pleura l parenchymal scarring. 4 mm pulmonary nodule posterior left upper lobe, axial image 33. 4 mm segment left lower lobe pulmonary nodule, axial image 56. 3 mm subpleural pulmonary nodule posterior left lower lobe, axial image 87. 3 mm left lower lobe pulmonary nodule, axial image 109. Minimal emphysematous change. No consolidation or pleural effusion. Visualized upper abdomen shows low attenuation of the hepatic parenchyma suggesting fatty infiltratio n. Bilobed cyst inferior right liver lobe measuring 2.5 cm an additional posterior right liver lobe c yst measuring 1.4 cm. Calcified granulomas within the spleen. Partially exophytic cortical cyst anter ior left kidney measuring 1.1 cm. Bones: Prominent dextroconvex scoliosis centered along the thoracolumbar spine. Moderate degenerative disc disease lower and upper thoracic spine. IMPRESSION: 1. COPD with minimal emphysema. Pulmonary arterial hypertension. Prominent pleural parenchymal scarri ng at the lung bases. 2. A few pulmonary nodules on the left measuring up to 4 mm. 6-12 month follow-up CT to reassess. 3. LAD coronary artery calcifications.
[2024-02-20 22:54] LABS: Chol/HDL Ratio 3.93 Ratio; LDL Cholesterol,Calculated 106.1 mg/dL (0.0-131.0)
== END | disposition home or self-care (01) ==
LOC: RADCTMAIN 12:46
PROVIDERS: ATTEND Internal Medicine Geriatric Medicine
DX: R73.9 Hyperglycemia, unspecified (principal); E03.9 Hypothyroidism, unspecified; J43.9 Emphysema, unspecified; I27.21 Secondary pulmonary arterial hypertension; I25.10 Atherosclerotic heart disease of native coronary artery without angina pectoris
CPT/HCPCS: 84439; 80061; 80053; 84443; 85025; 83036; 71275; 36415; Q9967

== ENCOUNTER → 2024-04-30 | Outpatient (CLI) | payer MEDICARE ==
[2024-04-30 15:27] LABS: Blood Urea Nitrogen 15.9 mg/dL (9.0-27.0); Carbon Dioxide 27.2 mmol/L (21.6-31.8); Chloride 104 mmol/L (96-109); Potassium 4.3 mmol/L (3.5-5.5); Sodium 141 mmol/L (135-145)
[2024-04-30 16:04] LABS: HCT 36.8 % (37.2-46.3); HGB 12.3 g/dL (12.0-15.0); MCH 29.5 pg (27.0-32.0); MCHC 33.4 g/dL (32.0-37.0); MCV 88.2 FL (80.0-97.0); NRBC Per 100 WBC 0 X 10*3/uL (0.00-0.01); Platelet Count 210 X 10*3/uL (140-440); RBC 4.17 X 10*6/uL (4.10-5.20); RDW 12.3 % (11.5-14.5); WBC 7.92 X 10*3/uL (4.50-10.00)
== END | disposition home or self-care (01) ==
LOC: LABWHC1 11:01
PROVIDERS: ATTEND Internal Medicine Interventional Cardiology
DX: Z01.812 Encounter for preprocedural laboratory examination (principal); R06.02 Shortness of breath
CPT/HCPCS: 36415; 80051; 82565; 84520; 85027

== ENCOUNTER → 2024-05-04 | Day surgery (SDC) | payer MEDICARE ==
[~2024-05-04] MED LIST changes: +ALPRAZolam 0.25 MG TAB PO PRN; +ALPRAZolam 0.5 MG TAB PO PRN; +BENZOCAINE SPRAY 1 CAN TOPICAL PRN; -HYDROmorphone 0.5 MG/0.5 ML SYRINGE IVP PRN; -LACTATED RINGERS 1,000 ML IV SCH; +NITROGLYCERIN SL TABS 0.4 MG TAB SUBLINGUAL PRN; -Pre Op ABX Message 1 EACH MISC MISCELLANE ONE; +RX INFO: IV CONTRAST WAS GIVEN 1 EACH MISC MISCELLANE PRN; +SODIUM CHLORIDE 0.9% 1,000 ML IV SCH; +fentaNYL (PF) 50 MCG/ML 5 ML AMP IVP PRN
[2024-05-04] MEDS: IV FLUID CONTINUATION 1,000 ML IV ONE ×2 (06:55→07:45)
[2024-05-04] MEDS: SODIUM CHLORIDE 0.9% 1,000 ML in EMPTY BAG 1 BAG IV SCH (06:55)
[2024-05-04 07:03] LABS: Glucose,Whole Blood 121 mg/dL (70-110)
[2024-05-04] MEDS: ASPIRIN 325 MG TAB PO STA (07:14)
[2024-05-04 07:19] VITALS: TEMP 97.9
[2024-05-04] MEDS: BENZOCAINE SPRAY 1 CAN MUCOUS MEM ONE (07:55)
[2024-05-04] MEDS: fentaNYL (PF) 50 MCG/1 ML VIAL IVP ONE (07:56)
[2024-05-04] MEDS: MIDAZOLAM 2 MG/2 ML VIAL IVP ONE (07:56)
--- NOTE | 2024-05-04 08:07 | P.PCN ---
Date of Procedure: 05/04/24 Operative Findings: TRANSESOPHAGEAL ECHOCARDIOGRAM ORGANIC SEARCH LEAD: SAÚL OLVERA MD, RPVI INDICATION: Valvular heart disease SEDATION: Conscious sedation COMPLICATION: None LEVEL OF SEDATION Moderate to sedation length of 12 minutes PROCEDURE DESCRIPTION: After obtaining an informed consent, the patient was brought to transesophageal echocardiogram room. Pulse oximetry and heart monitors were attached to the patient. The patient throat was sprayed using lidocaine. The patient was turned into left lateral position. After that a bite guard was placed. After an appropriate conscious sedation was initiated, the transesophageal echocardiogram was advanced through a bite guard into the mid esophagus. A 2-D echocardiogram images, color Doppler images, continuous wave images, pulse-wave images, of various cardiac structure were performed. After that the transesophageal echocardiogram probe was advanced into the stomach and fixed to obtain transgastric view was. The probe was brought into the mid esophagus. Inter-atrial septum was interrogated using 2D images, color Doppler images, and then contrast study. After that transesophageal echocardiogram was withdrawn out and upon withdrawing the descending thoracic aorta all the way up to the arch was evaluated. CONCLUSION: 1. Normal biventricular systolic function 2. Intact interatrial septum and intact left atrial appendage 3. Moderate mitral regurgitation and moderate tricuspid regurgitation 4. Aortic sclerosis with mild aortic stenosis and mean gradient of 10 mmHg 5. No evidence of pericardial effusion
[2024-05-04] MEDS: LIDOCAINE 1% INJ 10MG/ML (20 ML MDV) SQ ONE (08:13)
[2024-05-04] MEDS: VERAPAMIL SYRINGE (5 MG/10 ML) INTRAARTER ONE (08:15)
[2024-05-04] MEDS: HEPARIN SODIUM 1,000 UN/ML (10ML VL) IVP ONE (08:15)
[2024-05-04] MEDS: HEPARIN SODIUM,PORCINE (1 ML) 2,500 UNIT in SODIUM CHLORIDE 0.9% 250 ML IRRIGATION PRN (08:15)
[2024-05-04] MEDS: HEPARIN SODIUM,PORCINE 10,000 UNIT in SODIUM CHLORIDE 0.9% 1,000 ML IRRIGATION PRN (08:15)
[2024-05-04] MEDS: IOPAMIDOL-370 100ML BTL INJ ONE (08:28)
--- NOTE | 2024-05-04 08:38 | P.PCN ---
Date of Procedure: 05/04/24 Operative Findings: Heart catheterization Performing physician Salvador Love MD Procedure performed Right heart catheterization Left heart catheterization Selective right and left coronary angiogram Ultrasound-guided access of the right radial artery Indication Symptomatic 83-year-old female patient with valvular heart disease Approach Right radial artery and right basilic vein Complication None Level of sedation Moderate with sedation length of 28 minutes Procedure description After obtaining informed consent the patient was brought to cardiac catheter the right radial artery was cannulated using micropuncture technique under ultrasound guidance micropuncture wire passed easily and I placed a 6 Iraqi 11 cm sheath at the right radial artery and the patient was given 2 mg of verapamil intra-arterial and 5000's of heparin IV. After that the right leg vein was cannulated initially and I did exchange the venous sheath into a 6 Iraqi sheath over a 018 wire. Subsequently right heart catheterization was performed using 6 Iraqi [place] catheter before I did perform left heart catheterization using 6 Iraqi pigtail catheter and then selective right and left coronary angiogram using JR4 and JL 3.5 catheter. The procedure was completed with no complication. Hemodynamics Pulmonary capillary wedge pressure was 8 mmHg Pulmonary artery pressures were as follows systolic of 38 and diastolic of 9 and mean of 20 mmHg RV pressures were as follows systolic of 32 and end-diastolic of 5 mmHg Right atrial pressure was 4 mmHg The LVEDP was 22 mmHg Selective coronary angiogram The RCA is a large-caliber vessel and a dominant vessel and calcified vessel with mild disease only The left main is a large-caliber vessel with mild disease only The LCx is a large-caliber vessel and nondominant vessel with only mild disease noted The LAD is a large-caliber vessel with mild to moderate disease involving the proximal to midportion with a diagonal branch has an ostial disease appears to be in the range of 50% Conclusion Normal right-sided filling pressure and elevated left-sided filling pressure Calcified right and left coronary disease with mild to moderate disease noted No evidence of high-grade stenosis in the coronary arteries Postprocedure management Medical treatment Follow-up with the patient
[2024-05-04 09:51] VITALS: RESP 16
[2024-05-04 11:09] VITALS: PULSE 78
[2024-05-04 11:16] VITALS: BP 98/54
== END ==
LOC: CATHCVL 06:16
PROVIDERS: ATTEND Internal Medicine Interventional Cardiology
CPT/HCPCS: 93312; 93320; 93325; 93460

== ENCOUNTER → 2025-02-20 | Outpatient (CLI) | payer MEDICARE ==
--- NOTE | 2025-02-20 17:13 | MM ---
Reason for Exam: Screening (asymptomatic). Last screening mammogram was performed 12 month(s) ago. Patient History: Menarche at age 13. First Full-Term at age 27. Postmenopausal. Breast cancer, right, age 78. Previous chest radiation therapy at age 78. Estrogen for 8 years from age 57 until age 65. Progesterone for 8 years from age 57 until age 65. Excisional Biopsy on the Left side. 05/25/2019, Lumpectomy on the Right side. 05/25/2019, Malignant Core Biopsy on the right side. 11/08/2018, Malignant Core Biopsy on the right side. 05/2019, Radiation Therapy on the right side. Paternal aunt had breast cancer, age 50. Prior Study Comparison: 02/15/2022 Bilateral MG 3D screening mammo w/cad, [facility]. 02/16/2023 Bilateral MG 3D screening mammo w/cad, [facility]. 02/20/2024 Bilateral MG 3D screening mammo w/cad, [facility]. Tissue Density: The breasts are heterogeneously dense, which may obscure small masses. Findings: Analyzed By CAD. Postsurgical and posttreatment changes right breast. Benign bilateral vascular calcifications. Coarse calcifications medial left breast remain unchanged. There is no suspicious group of microcalcifications or new suspicious mass in either breast. Overall Assessment: Benign, BI-RAD 2 Management: Screening Mammogram of both breasts in 1 year. Patient should continue monthly self-breast exams. A clinical breast exam by your physician is recommended on an annual basis. This exam should not preclude additional follow-up of suspicious palpable abnormalities. [facility], , 02/20/2025 5:10 PM. Electronically signed and approved by: Awilda Rehman M.D. Radiologist
== END | disposition home or self-care (01) ==
LOC: RADMAMWWP 12:40
PROVIDERS: ATTEND Internal Medicine Hematology & Oncology
DX: Z12.31 Encounter for screening mammogram for malignant neoplasm of breast (principal); R92.333 Mammographic heterogeneous density, bilateral breasts; Z78.0 Asymptomatic menopausal state; Z80.3 Family history of malignant neoplasm of breast; Z85.3 Personal history of malignant neoplasm of breast
CPT/HCPCS: 77063; 77067